=== PATIENT | male | born 1980 | race Caucasian/White ===

== ENCOUNTER 2023-03-02 17:32 | Emergency (ER) | payer MEDICAID ==
[~2023-03-02] VITALS: Ht 167.6 cm; Wt 81.6 kg
[2023-03-02 17:58] VITALS: BP 138/87; PULSE 93; RESP 20; TEMP 99.1
[2023-03-02] MEDS ORDERED: LOTC TP ×2 (18:28→18:36)
== END 2023-03-02 18:45 | disposition home or self-care (01) ==
LOC: MED 17:32
DX: B35.6 Tinea cruris (principal); Z79.899 Other long term (current) drug therapy
CPT/HCPCS: 99282